=== PATIENT | male | born 1980 | race Caucasian/White ===

== ENCOUNTER 2021-08-22 06:28 | Emergency (ER) | payer OTHER, SELFPAY ==
[2021-08-22 06:28] VITALS: BP 155/104; PULSE 102; RESP 18; TEMP 37.2; O2SAT 98; BMI 23.0
[2021-08-22 06:32] VITALS: BP 155/104; PULSE 108; TEMP 37.2; O2SAT 96
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
--- NOTE | 2021-08-22 06:49 | PC.NURSE ---
PT REFUSED ADDITIONAL VITAL SIGNS UPON DISCHARGE FROM ER. NO ACUTE DISTRESS NOTED.
[2021-08-22 06:50] VITALS: BP 0/0; PULSE 99; RESP 18; TEMP 37.2; O2SAT 100
== END 2021-08-22 06:57 | disposition home or self-care (01) ==
PROVIDERS: Emergency Provider Emergency Medicine
DX: F19.90 Other psychoactive substance use, unspecified, uncomplicated (principal)
CPT/HCPCS: 99282

== ENCOUNTER 2024-06-15 23:34 | Emergency (ER) | payer OTHER, SELFPAY ==
[2024-06-15 23:35] VITALS: BP 171/99; PULSE 86; RESP 18; TEMP 36.6; O2SAT 100; BMI 24.3
--- NOTE | 2024-06-15 23:55 | ECG_ITS ---
APPROVED REPORT Exam: Resting ECG HR:83 bpm ECG Measurements Heart Rate 83 AXES QRSd 89 QRS 78 QT 363 T 54 QTc 403 Conclusion Sinus rhythm Normal axis No STEMI Electronically signed by : DELICIA KHAN, 06/16/2024 08:29:12
[2024-06-16] VITALS (12 sets, daily range): BP systolic 101–154; BP diastolic 60–109; PULSE 72–101; RESP 16; TEMP 36.6; O2SAT 98–100
[2024-06-16 00:16] LABS: White Blood Count 9.4 K/mm3 (4.8-10.8)
[2024-06-16 00:17] LABS: Hematocrit 35.8 % (42.0-52.0); Hemoglobin 11.7 g/dL (14.1-18.0); Mean Corpuscular HGB Conc 32.7 g/dL (31.8-35.4); Mean Corpuscular Volume 85.6 fl (80-94); Neutrophils % 71.6 % (37.0-80.0); Platelet Count 323 K/mm3 (142-424); Red Blood Count 4.18 M/mm3 (4.60-6.20); Red Cell Distribution Width 13.2 % (11.5-17.5)
[2024-06-16 00:18] LABS: Basophils % 0.4 % (0.1-2.0); Eosinophils # 0.1 K/mm3 (0.0-0.4); Eosinophils % 1.5 % (0.1-12.0); Lymphocytes # 1.6 K/mm3 (0.7-4.5); Lymphocytes % 17.2 % (10-50); Monocytes # 0.8 K/mm3 (0.1-1.0); Neutrophils # 6.7 K/mm3 (1.8-7.8)
--- NOTE | 2024-06-16 00:18 | PC.NURSE ---
meds not available in ER; called med/surg for meds
[2024-06-16 00:22] LABS: Lactate Venous 1.4 mmol/L (0.4-2.0); VBG Base Excess 1.4 mmol/L (-2.4-2.3); VBG HCO3 26.7 mmol/L (23-30); VBG Oxygen Saturation 70.8 % (50-70); VBG PCO2 47.3 mmol/L (35-51); VBG PH 7.37 mmol/L (7.31-7.41); VBG PO2 38.8 mmol/L (28-40); VBG Total CO2 28.1 mmol/L (23-27)
[2024-06-16 00:30] LABS: Alanine Aminotransferase 44 U/L (12-78); Albumin Level 4.1 g/dl (3.5-5.0); Albumin/Globulin Ratio 1.5 (1.1-1.8); Alkaline Phosphatase 69 U/L (38-126); Anion Gap 8.9 mEq/L (5-15); Aspartate Amino Transferase 57 U/L (17-59); Bilirubin,Total 0.5 mg/dl (0.2-1.3); Blood Urea Nitrogen 12 mg/dl (9-20); Calcium 9.3 mg/dl (8.4-10.2); Carbon Dioxide 30 mmol/L (22.0-30.0); Chloride 104 mmol/L (98-107); Creatinine Clearance Estimated 138 mL/min (50-200); Estimated Glomerular Filt Rate 106 ml/min (>60); GFR (African American) 128 ML/MIN (>60); Globulin 2.8 g/dL (1.3-3.2); Glucose 97 mg/dl (74-100); Potassium 3.9 mmoL/L (3.5-5.1); Sodium 139 mmol/L (136-145); Total Protein,Serum 6.9 g/dl (6.3-8.2)
[2024-06-16 00:35] LABS: Ethyl Alcohol < 10 mg/dl (0-10)
[2024-06-16 00:56] LABS: Free T4 (Free Thyroxine) 1.19 ng/dl (0.78-2.19)
[2024-06-16 01:00] LABS: Thyroid Stimulating Hormone 0.62 uIU/mL (0.465-4.68)
[2024-06-16] MEDS: risperiDONE 1MG TABLET 2 MG PO (01:37)
[2024-06-16] MEDS: BENZTROPINE 1MG TABLET 1 MG PO (01:37)
--- NOTE | 2024-06-16 02:42 | PC.NURSE ---
Spoke with [facility] for a transfer to [facility]. speaking with provider now.
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
[2024-06-16] MEDS: HALOPERIDOL LACTATE 5 MG/ML VIAL 3 MG IV (03:48)
[2024-06-16] MEDS: MIDAZOLAM 2MG/2ML VIAL 2 MG IV (03:48)
[2024-06-16 04:23] LABS: HIV Combo NEGATIVE (Negative)
[2024-06-16 04:25] LABS: Hepatitis C Ab Qual. W/ RFX NEGATIVE (Negative)
--- NOTE | 2024-06-16 04:44 | PC.NURSE ---
Report called to Shelli at [facility]
--- NOTE | 2024-06-16 05:50 | PC.NURSE ---
IV removed. Catheter tip intact. Bleeding controlled. EMS here to transport patient to [facility].
== END 2024-06-16 06:04 | disposition short-term general hospital (02) ==
PROVIDERS: Emergency Provider Emergency Medicine
DX: F29 Unspecified psychosis not due to a substance or known physiological condition (principal); R41.82 Altered mental status, unspecified; Z91.148 Patient's other noncompliance with medication regimen for other reason
CPT/HCPCS: 80053; 80320; 82803; 84439; 84443; 85025; 86803; 87389; 93005; 96374; 96375; 99291; G0480; J1630; J2250